=== PATIENT | female | born 1970 | race Caucasian/White ===

== ENCOUNTER 2016-05-26 10:39 | Emergency (ER) | payer OTHER ==
[~2016-05-26] VITALS: Ht 170.1 cm; Wt 72.6 kg
[~2016-05-26 10:39] MED LIST: ANAPROX DS550 MG PO; AUGMENTIN 875875 MG PO; CLEOCIN150 MG PO; HYDROCODONE BIT1 T11 PO; KEFLEX500 MG PO; MOTRIN800 MG PO; NKHM; TRAMADOL HCL50 MG PO; VICODIN 5/500 505 MG PO; VICODIN 500 MG-1 TAB PO
[2016-05-26 10:44] VITALS: BP 167/97
[2016-05-26] MEDS ORDERED: NAPROSYN500 MG PO (11:48)
== END 2016-05-26 11:52 | disposition home or self-care (01) ==
LOC: ED 10:39
DX: M25.562 Pain in left knee (principal); R60.9 Edema, unspecified; Z98.51 Tubal ligation status; Z88.6 Allergy status to analgesic agent

== ENCOUNTER 2018-09-25 15:38 | Emergency (ER) | payer BC ==
[~2018-09-25] VITALS: Ht 165.1 cm; Wt 63.5 kg
[~2018-09-25 15:38] MED LIST changes: +NAPROSYN500 MG PO
[2018-09-25 15:40] VITALS: BP 186/94
== END 2018-09-25 17:23 | disposition home or self-care (01) ==
LOC: ED 15:38
DX: S90.32XA Contusion of left foot, initial encounter (principal); W20.8XXA Other cause of strike by thrown, projected or falling object, initial encounter; Y93.89 Activity, other specified; Y92.89 Other specified places as the place of occurrence of the external cause; Y99.8 Other external cause status

== ENCOUNTER → 2020-04-22 | Outpatient (CLI) | payer OTHER ==
[2020-04-22 11:12] LABS: MEAN CORPUSCULAR HGB 30.3 pg (27.0-31.0); MEAN PLATELET VOLUME 9.8 fl (9.6-12.3); RED BLOOD COUNT 5.12 10*6/uL (4.10-5.10); WHITE BLOOD COUNT 6.2 10*3/uL (4.8-10.8)
[2020-04-22 11:29] LABS: ALBUMIN 3.9 gm/dl (3.1-4.5); ALKALINE PHOSPHATASE 111 U/L (45-117); BUN 14 mg/dl (7-24); CHLORIDE 105 mmol/L (98-107); CHOLESTEROL 180 mg/dL (<200); CREATININE 0.65 mg/dL (0.55-1.02); FREE T4 1.09 ng/dl (0.76-1.46); HDL CHOLESTEROL 46 mg/dl (40-60); LDL CHOLESTEROL 101 mg/dL (9-159); POTASSIUM 3.2 mmol/L (3.5-5.1); SGOT/AST 18 IU/L (3-35); SGPT/ALT 29 U/L (12-78); SODIUM 140 mmol/L (136-145); TOTAL PROTEIN 7.2 gm/dL (6.4-8.2); TRIGLYCERIDES 167 mg/dl (<150); VLDL CHOLESTEROL 33 mg/dL (6-40)
== END | disposition home or self-care (01) ==
LOC: LAB 10:22
PROVIDERS: ATTEND Family Medicine
DX: I10 Essential (primary) hypertension (principal); E11.9 Type 2 diabetes mellitus without complications; E55.9 Vitamin D deficiency, unspecified; E78.00 Pure hypercholesterolemia, unspecified

== ENCOUNTER 2020-07-14 13:27 | Emergency (ER) | payer OTHER ==
[~2020-07-14] VITALS: Ht 165.1 cm; Wt 57.2 kg
[2020-07-14 13:31] VITALS: BP 178/108
[2020-07-14] MEDS ORDERED: IBU800 MG PO (15:39)
[2020-07-14] MEDS ORDERED: ANTIBIOTIC28.4 GM T (15:39)
[2020-07-14] MEDS ORDERED: AUGMENTIN 875-875 MG PO (15:39)
[2020-07-14] MEDS ORDERED: HYDROCODONE-AC1 EAC1 PO ×2 (15:39→15:40)
== END 2020-07-14 16:03 | disposition home or self-care (01) ==
LOC: ED 13:27
DX: S51.811A Laceration without foreign body of right forearm, initial encounter (principal); W54.0XXA Bitten by dog, initial encounter; Y93.89 Activity, other specified; Y92.89 Other specified places as the place of occurrence of the external cause; Y99.9 Unspecified external cause status

== ENCOUNTER → 2020-08-13 | Outpatient (CLI) | payer OTHER ==
[~2020-08-13] MED LIST changes: +ANTIBIOTIC28.4 GM T; +AUGMENTIN 875-875 MG PO; +HYDROCODONE-AC1 EAC1 PO; +IBU800 MG PO
[2020-08-13 10:41] LABS: HEMATOCRIT 45.5 % (37.0-47.0); MEAN CELL VOLUME 88.9 fl (81.0-99.0); MEAN CORPUSCULAR HGB 30.5 pg (27.0-31.0); MEAN CORPUSCULAR HGB CONC 34.3 g/dl (33.0-37.0); MEAN PLATELET VOLUME 10.1 fl (9.6-12.3); RED BLOOD COUNT 5.12 10*6/uL (4.10-5.10); RED CELL DISTRI WIDTH 12.5 % (0-14.5)
[2020-08-13 11:10] LABS: ALBUMIN 4.3 gm/dl (3.1-4.5); ALKALINE PHOSPHATASE 89 U/L (45-117); BUN 11 mg/dl (7-24); CHLORIDE 108 mmol/L (98-107); CHOLESTEROL 157 mg/dL (<200); CPK 59 U/L (26-192); CREATININE 0.62 mg/dL (0.55-1.02); LDL CHOLESTEROL 93 mg/dL (9-159); POTASSIUM 3.8 mmol/L (3.5-5.1); SGOT/AST 12 IU/L (3-35); SGPT/ALT 25 U/L (12-78); SODIUM 140 mmol/L (136-145); TOTAL PROTEIN 8.2 gm/dL (6.4-8.2); TRIGLYCERIDES 122 mg/dl (<150)
== END | disposition home or self-care (01) ==
LOC: LAB 09:23
PROVIDERS: ATTEND Family Medicine
DX: I10 Essential (primary) hypertension (principal); E78.00 Pure hypercholesterolemia, unspecified; E55.9 Vitamin D deficiency, unspecified

== ENCOUNTER → 2021-10-12 | Outpatient (CLI) | payer BC ==
[2021-10-12 10:29] LABS: HEMATOCRIT 38.4 % (37.0-47.0); MEAN CELL VOLUME 84.6 fl (81.0-99.0); MEAN CORPUSCULAR HGB 29.5 pg (27.0-31.0); MEAN CORPUSCULAR HGB CONC 34.9 g/dl (33.0-37.0); MEAN PLATELET VOLUME 9.6 fl (9.6-12.3); RED BLOOD COUNT 4.54 10*6/uL (4.10-5.10); RED CELL DISTRI WIDTH 12.3 % (0-14.5); WHITE BLOOD COUNT 13.7 10*3/uL (4.8-10.8)
[2021-10-12 10:45] LABS: ALKALINE PHOSPHATASE 98 U/L (45-117); BUN 13 mg/dl (7-24); CHLORIDE 107 mmol/L (98-107); CHOLESTEROL 153 mg/dL (<200); CPK 72 U/L (26-192); CREATININE 1.05 mg/dL (0.55-1.02); LDL CHOLESTEROL 88 mg/dL (9-159); POTASSIUM 3.5 mmol/L (3.5-5.1); SGOT/AST 17 IU/L (3-35); SGPT/ALT 28 U/L (12-78); SODIUM 141 mmol/L (136-145); TOTAL PROTEIN 7.7 gm/dL (6.4-8.2); TRIGLYCERIDES 127 mg/dl (<150)
[2021-10-12 11:42] LABS: VITAMIN D, 25-HYDROXY 31.1 ng/mL (30-100)
== END | disposition home or self-care (01) ==
LOC: LAB 10:16
PROVIDERS: ATTEND Family Medicine
DX: Z00.00 Encounter for general adult medical examination without abnormal findings (principal); E74.9 Disorder of carbohydrate metabolism, unspecified; I10 Essential (primary) hypertension; E78.00 Pure hypercholesterolemia, unspecified; E55.9 Vitamin D deficiency, unspecified

== ENCOUNTER 2023-07-06 09:09 | Emergency (ER) | payer BC ==
[~2023-07-06] VITALS: Ht 165.1 cm; Wt 59.0 kg
[2023-07-06 09:20] VITALS: BP 167/99
[2023-07-06] MEDS ORDERED: METFORMIN HYD1000 MG PO (09:21)
[2023-07-06] MEDS ORDERED: Ketorolac Tromethamine 60 MG/2 ML VIAL IM ONE (09:30)
[2023-07-06] MEDS ORDERED: Dexamethasone Sodium Phospha 20 MG/5 ML VIAL IM ONE (09:30)
[2023-07-06] MEDS ORDERED: MELOXICAM15 MG PO (11:01)
[2023-07-06] MEDS ORDERED: CYCLOBENZAPRINE5 M3 PO (11:01)
== END 2023-07-06 11:53 | disposition home or self-care (01) ==
LOC: ED 09:09
DX: M62.830 Muscle spasm of back (principal); Z98.51 Tubal ligation status

== ENCOUNTER 2024-01-10 09:43 | Emergency (ER) | payer BC ==
[~2024-01-10] VITALS: Wt 64.9 kg
[~2024-01-10 09:43] MED LIST changes: +CYCLOBENZAPRINE5 M3 PO; +MELOXICAM15 MG PO; +METFORMIN HYD1000 MG PO
[2024-01-10] MEDS ORDERED: Acetaminophen/Oxycodone 5 MG/325 MG TABLET PO ONE (09:50)
[2024-01-10 09:51] VITALS: BP 197/121
[2024-01-10] MEDS ORDERED: MELOXICAM15 MG PO (10:07)
== END 2024-01-10 10:23 | disposition home or self-care (01) ==
LOC: ED 09:43
DX: M25.512 Pain in left shoulder (principal)

== ENCOUNTER 2024-09-21 10:31 | Emergency (ER) | payer OTHER ==
[~2024-09-21] VITALS: Ht 165.1 cm; Wt 55.8 kg
[2024-09-21 10:48] VITALS: BP 180/98
[2024-09-21] MEDS ORDERED: DIOVAN40 MG PO (10:48)
[2024-09-21] MEDS ORDERED: Dexamethasone Sodium Phospha 20 MG/5 ML VIAL IM ONE (11:05)
[2024-09-21] MEDS ORDERED: PREDNISONE20 M1 PO (11:07)
== END 2024-09-21 11:20 | disposition home or self-care (01) ==
LOC: ED 10:31
DX: L23.7 Allergic contact dermatitis due to plants, except food (principal); Z79.899 Other long term (current) drug therapy; Z98.890 Other specified postprocedural states